=== PATIENT | male | born 1990 | race Caucasian/White ===

== ENCOUNTER 2017-10-06 21:04 | Emergency (ER) | payer OTHER ==
[~2017-10-06] VITALS: Ht 182.9 cm; Wt 68.0 kg
[~2017-10-06 21:04] MED LIST: DOXY100T53 PO; ERYT.5TO RIGHTEYE; Norco 5-325 Ta1 EACH PO; OXYACE5T PO; PROM25 PO; RXOXYACE PO; Ultram50 MG PO; Zofran Odt8 MG PO
[2017-10-06 21:27] LABS: BASOPHILS ABSOLUTE AUTO 0.03 K/mm3 (0.00-0.23); BASOPHILS PERCENT AUTO 0 % (0-2); EOSINOPHILS ABSOLUTE AUTO 0.12 K/mm3 (0.00-0.68); EOSINOPHILS PERCENT AUTO 1 % (0-6); Hematocrit 46.5 % (37.0-53.0); Hemoglobin 16.1 g/dL (13.5-17.5); IMMATURE GRAN ABSOLUTE AUTO 0.07 K/mm3 (0.00-0.10); IMMATURE GRAN PERCENT AUTO 0 % (0-1); LYMPHOCYTES ABSOLUTE AUTO 0.98 K/mm3 (0.84-5.20); LYMPHOCYTES PERCENT AUTO 5 % (21-46); MONOCYTES ABSOLUTE AUTO 0.71 K/mm3 (0.16-1.47); MONOCYTES PERCENT AUTO 4 % (4-13); Mean Corpuscular HGB 30.3 pg (26.0-34.0); Mean Corpuscular HGB Conc 34.6 g/dL (31.5-36.5); Mean Corpuscular Volume 87 fL (80-100); Mean Platelet Volume 9.8 fL (9.1-12.4); NEUTROPHILS ABSOLUTE AUTO 17.41 K/mm3 (1.96-9.15); NEUTROPHILS PERCENT AUTO 90 % (41-73); Platelet Count 243 K/mm3 (150-400); RDW Coefficient Variation 12.6 % (11.7-14.2); RDW Standard Deviation 40.2 fL (35.1-46.3); Red Blood Cell Count 5.32 M/mm3 (4.30-5.90); White Blood Cell Count 19.32 K/mm3 (4.00-11.30)
[2017-10-06 22:30] LABS: Alanine Aminotransfer (ALT/SGP 23 U/L (12-78); Albumin, Blood 4.9 g/dL (3.4-5.0); Albumin/Globulin Ratio 1.4 (0.8-1.8); Alk Phos 57 U/L (50-136); Anion Gap 11 mmol/L (6-16); Aspartate Aminotrans (AST/SGOT 12 U/L (12-37); Bilirubin, Total 0.9 mg/dL (0.1-1.0); Blood Urea Nitrogen 14 mg/dL (8-24); Bun/Creatinine Ratio 17.5 (12.0-20.0); CO2, Blood 23 mmol/L (21-32); Calcium, Blood 9.1 mg/dL (8.5-10.1); Chloride, Blood 109 mmol/L (98-108); Globulin, Blood 3.4 g/dL (2.2-4.0); Glomerular Filtration Rate >60 (60-); Glucose, Blood 96 mg/dL (70-99); Sodium, Blood 143 mmol/L (136-145); Total Protein, Blood 8.3 g/dL (6.4-8.2)
[2017-10-06 23:39] LABS: Source, Urine Voided
[2017-10-06 23:41] LABS: Blood, Urine 2+ (Neg); Glucose Qualitative, Urine Neg (Neg); Ketones, Urine 4+ (Neg); Leukocyte Esterase, Urine 1+ (Neg); Nitrite, Urine Neg (Neg); Protein, Urine 1+ (Neg); Specific Gravity, Urine 1.025 (1.003-1.022); Urobilinogen, Urine 1+ (Normal)
[2017-10-06] MEDS ORDERED: Zofran Odt4 MG PO (23:51)
[2017-10-06 23:55] LABS: Bilirubin, Urine 1+ (Neg)
[2017-10-06 23:56] LABS: Amorphous Light (0-Heavy); Appearance, Urine Clear (Clear); Bacteria Rare /hpf; Color, Urine Amber (P-Yellow); Mucus Light (0-Heavy); Red Blood Cells, Urine 0-2 /hpf (0-2); Squamous Epithelial Cells Rare /hpf (Few); White Blood Cells, Urine 0-2 /hpf (0-5)
== END 2017-10-07 00:39 | disposition home or self-care (01) ==
LOC: ER 21:04
PROVIDERS: Emergency Medicine
DX: K52.9 Noninfective gastroenteritis and colitis, unspecified (principal); F17.200 Nicotine dependence, unspecified, uncomplicated
CPT/HCPCS: 36415; 80053; 81001; 83690; 85025; 87086; 96361; 96374; 99283-25; J2405; J7030

== ENCOUNTER 2019-03-30 21:42 | Emergency (ER) | payer OTHER ==
[~2019-03-30] VITALS: Ht 182.9 cm; Wt 65.8 kg
[~2019-03-30 21:42] MED LIST changes: +Zofran Odt4 MG PO
[2019-03-30] MEDS ORDERED: PROM25 PO (23:47)
== END 2019-03-31 00:01 | disposition home or self-care (01) ==
LOC: ER 21:42
DX: B34.9 Viral infection, unspecified (principal); Z87.891 Personal history of nicotine dependence
CPT/HCPCS: 96361; 96374; 96375; 99283-25; A9270; A9270-GY; J1885; J2405; J7120

== ENCOUNTER 2022-01-08 22:32 | Emergency (ER) | payer SELFPAY ==
[~2022-01-08] VITALS: Ht 180.3 cm; Wt 77.1 kg
[2022-01-09] MEDS ORDERED: CEPH500 PO (00:22)
== END 2022-01-09 00:33 | disposition home or self-care (01) ==
LOC: ER 22:32
DX: S63.601A Unspecified sprain of right thumb, initial encounter (principal); S60.511A Abrasion of right hand, initial encounter; S60.222A Contusion of left hand, initial encounter; S60.411A Abrasion of left index finger, initial encounter; S60.410A Abrasion of right index finger, initial encounter; S60.417A Abrasion of left little finger, initial encounter; S60.416A Abrasion of right little finger, initial encounter; S60.413A Abrasion of left middle finger, initial encounter; S60.412A Abrasion of right middle finger, initial encounter; S60.415A Abrasion of left ring finger, initial encounter; S60.414A Abrasion of right ring finger, initial encounter; S60.312A Abrasion of left thumb, initial encounter; S60.311A Abrasion of right thumb, initial encounter; Z23 Encounter for immunization; Z87.891 Personal history of nicotine dependence; W23.0XXA Caught, crushed, jammed, or pinched between moving objects, initial encounter
CPT/HCPCS: 73130; 73140; 90471; 90714; 99283-25; A9270